=== PATIENT | female | born 2000 | race Caucasian/White ===

== ENCOUNTER 2021-07-18 10:47 | Emergency (ER) | payer MEDICAID ==
[~2021-07-18] VITALS: Ht 162.6 cm; Wt 70.0 kg
[2021-07-18 10:50] VITALS: BP 134/77
[2021-07-18] MEDS ORDERED: ACET-3385 PO (10:56)
[2021-07-18] MEDS ORDERED: DIAZEPAM 5 MG TABLET PO ONE (12:45)
[2021-07-18] MEDS ORDERED: LIDOCAINE 5% TRANSDERMAL PATCH TD ONE (12:45)
[2021-07-18] MEDS ORDERED: KETOROLAC TROMETHAMINE 30 MG/ML VIAL IM ONE (12:45)
== END 2021-07-18 14:19 | disposition home or self-care (01) ==
LOC: EMS 10:54
DX: M43.6 Torticollis (principal)
CPT/HCPCS: 72050; 96372; 99283; J1885